=== PATIENT | female | born 1985 | race Caucasian/White ===

== ENCOUNTER 2017-07-28 04:45 | Emergency (ER) | payer OTHER ==
[2017-07-28 04:59] VITALS: BMI 27.3
[2017-07-28 06:09] LABS: BILIRUBIN,URINE NEGATIVE (NEGATIVE); BLOOD/HEMOGLOBIN,URINE NEGATIVE (NEGATIVE); GLUCOSE, URINE NEGATIVE (NEGATIVE); KETONES,URINE NEGATIVE (NEGATIVE); LEUKOCYTE ESTERASE ,URINE NEGATIVE (NEGATIVE); NITRITES,URINE NEGATIVE (NEGATIVE); PROTEIN,URINE NEGATIVE (NEGATIVE); UROBILINOGEN,URINE NORMAL (NORMAL)
[2017-07-28 06:14] LABS: BASOPHILS % (AUTO) 0.5 % (0.2-1.0); EOSINOPHILS # (AUTO) 0.2 x10^3/uL (0.0-0.2); EOSINOPHILS % (AUTO) 2.2 % (0.9-2.9); HEMATOCRIT 25.5 % (36.0-47.0); HEMOGLOBIN 8.2 g/dL (12.0-16.0); LYMPHOCYTES # (AUTO) 1.9 X10^3/uL (1.3-2.9); LYMPHOCYTES % (AUTO) 22.1 % (21.0-51.0); MEAN CORPUSCULAR HEMOGLOBIN 25.3 pg (27.0-34.0); MEAN CORPUSCULAR HGB CONC 32.3 g/dL (33.0-35.0); MEAN CORPUSCULAR VOLUME 78.5 fL (80.0-100.0); MEAN PLATELET VOLUME 8.5 fL (7.4-11.0); MONOCYTES # (AUTO) 0.8 x10^3/uL (0.3-0.8); MONOCYTES % (AUTO) 9.3 % (0.0-13.0); NEUTROPHILS # (AUTO) 5.7 x10^3/uL (2.2-4.8); NEUTROPHILS % (AUTO) 65.9 % (42.0-75.0); PLATELET COUNT 362 X10^3/uL (150.0-450.0); RED BLOOD COUNT 3.25 X10^6/uL (3.5-5.4); RED CELL DISTRIBUTION WIDTH 17.3 % (11.6-16.5); WHITE BLOOD COUNT 8.7 X10^3/uL (3.6-10.0)
[2017-07-28 06:30] LABS: APPEARANCE,URINE CLEAR (CLEAR); COLOR,URINE STRAW (YELLOW)
[2017-07-28 06:32] LABS: ALANINE AMINOTRANSFERASE 16 Units/L (12-78); ALBUMIN 1.5 g/dL (3.4-5.0); ALKALINE PHOSPHATASE 104 Units/L (46-116); ASPARTATE AMINO TRANSFERASE 23 Units/L (15-37); BLOOD UREA NITROGEN 5 mg/dL (7-18); CALCIUM 7.3 mg/dL (8.5-10.1); CARBON DIOXIDE 24.3 mmol/L (21-32); CHLORIDE 108 mmol/L (98-107); COR CA(FOR HYPOALB) 9.3 mg/dL (8.5-10.1); CREATININE 0.42 mg/dL (0.55-1.02); SODIUM 141 mmol/L (136-145); TOTAL PROTEIN 5.7 g/dL (6.4-8.2); eGFR BLACK RACES > 60 (>60); eGFR NON BLACK RACES > 60 (>60)
[2017-07-28 06:33] LABS: PLATELET MORPHOLOGY COMMENT NORMAL (NORMAL)
[2017-07-28] MEDS ORDERED: INJECTAFER 750 MG in NS 250 ML IV 250 ML IV NR (06:45)
--- NOTE | 2017-07-28 08:13 | US ---
HISTORY: , swelling and nausea Study: Limited OB ultrasound Comparison: None Technique: Multiple grayscale and color flow Doppler images of the pelvis were obtained with focused evaluation of the fetus. Findings: A viable single intrauterine is identified with heart tones of 166beats per minute. A cephalic presentation is observed with an anterior placenta. Normal amniotic fluid volume is obser yaritza with an JOSE MANUEL of 8.9 cm. A 4 chambered heart is identified. A three-vessel cord is observed. The f etal spine is grossly unremarkable. Estimated weight is 2239 g. Value Estimated Gestational Age BPD 8.21 cm 33 weeks 0 days HC 30.18 cm 33 weeks 4 days AC 29.75 cm 33 weeks 5 days FL 6.54 cm 33 weeks 5 days IMPRESSION: 1. A viable single intrauterine with an average ultrasound age of 33 weeks 4 days correspon ds to an estimated date of delivery of 09/11/2017. Reported By:
[2017-07-28] MEDS ORDERED: PHENERGAN INJ 25 MG IM ONE (08:15)
[2017-07-28] MEDS ORDERED: PHENERGAN INJ 25 MG ONE (08:20)
[2017-07-28 09:19] VITALS: BP 126/79
== END 2017-07-28 11:50 | disposition home or self-care (01) ==
LOC: ER 04:45
DX: O26.893 Other specified pregnancy related conditions, third trimester (principal); Z3A.33 33 weeks gestation of pregnancy; O21.0 Mild hyperemesis gravidarum; R60.9 Edema, unspecified
CPT/HCPCS: 36415; 76815; 80053; 80307; 81003; 85025; 96372; 99284; G0434; J1439; J2550